=== PATIENT | female | born 1995 | race Caucasian/White ===

== ENCOUNTER 2023-11-01 12:55 | Emergency (ER) | payer OTHER ==
[2023-11-01 13:09] VITALS: BP 110/77; PULSE 92; RESP 20; TEMP 97.6; BMI 38.2
[2023-11-01] MEDS ORDERED: SODIUM CHLORIDE 0.9% 500 ML INFUS.BAG IV ONE (13:34)
[2023-11-01] MEDS ORDERED: ONDANSETRON 4 MG/2 ML VIAL IVPUSH ONE (13:34)
[2023-11-01] MEDS ORDERED: ACETAMINOPHEN 1000 MG/100 ML BAG IVPB ONE (13:34)
[2023-11-01] MEDS ORDERED: ACETAMINOPHEN INJECTION 100 ML IVPB ONE (13:38)
[2023-11-01] MEDS ORDERED: ONDANSETRON 4 MG/2 ML VIAL ONE (13:38)
[2023-11-01] MEDS ORDERED: FAMOTIDINE 20 MG/50 ML IVPB 20 MG/50 ML MG IVPB ONE ×2 (13:45→13:49)
[2023-11-01] MEDS ORDERED: METOCLOPRAMIDE HCL INJECTION 10 MG/2 ML VIAL IVPUSH ONE (13:45)
[2023-11-01] MEDS ORDERED: METOCLOPRAMIDE HCL INJECTION 10 MG/2 ML VIAL ONE (13:48)
== END 2023-11-01 15:53 | disposition home or self-care (01) ==
LOC: JER 12:55
PROC: 3E033GC Introduction of Other Therapeutic Substance into Peripheral Vein, Percutaneous Approach (ICD-10-PCS; principal; 2023-11-01)
PROC: 3E033GC Introduction of Other Therapeutic Substance into Peripheral Vein, Percutaneous Approach (ICD-10-PCS; 2023-11-01)
PROC: 3E033GC Introduction of Other Therapeutic Substance into Peripheral Vein, Percutaneous Approach (ICD-10-PCS; 2023-11-01)
DX: O21.9 Vomiting of pregnancy, unspecified (principal); Z3A.12 12 weeks gestation of pregnancy
CPT/HCPCS: 99284-25